=== PATIENT | female | born 1995 | race Caucasian/White ===

== ENCOUNTER 2018-03-10 18:39 | Emergency (ER) | payer BC ==
[2018-03-10] MEDS ORDERED: IBUPROFEN 200 MG TABLET PO ONE (19:16)
[2018-03-10] MEDS ORDERED: AMOXICILLIN/POT 875/125 1 EACH PO ONE (19:26)
--- NOTE | 2018-03-10 19:29 | ED Physician Documentation ---
Sore Throat/Dental Pain - HISTORIAN Historian: patient - HPI Stated Complaint: sore throat Chief Complaint: Sore Throat Additional Information: Patient presents to ED with a 2 day history of sore throat. Upon presentation she has fever 102.0. 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 Onset: hours (24) Associated Symptoms: fever, chills, sore throat - ROS CONST: no problems CVS/RESP: denies: chest pain GI/: denies: nausea, vomiting MS/SKIN/LYMPH: denies: muscle aches, leg swelling NEURO/PSYCH: none - PAST HX Past History: none Allergies/Adverse Reactions: Allergies Allergy/AdvReac Type Severity Reaction Status Date / Time cephalexin [From Keflex] Allergy Verified 03/10/18 19:31 Home Medications: Ambulatory Orders Medication Instructions Recorded Amoxicillin/Potassium Clav 1 each PO BID #20 tablet 03/10/18 [Augmentin 875-125 Tablet] - SOCIAL HX Smoking History: non-smoker Alcohol Use: none Drug Use: none - FAMILY HX Family History: No - VITAL SIGNS Vital Signs: Vital Signs Temp Pulse Resp BP Pulse Ox 100.3 F H 123 H 24 122/95 97 03/10/18 19:45 03/10/18 19:45 03/10/18 19:45 03/10/18 19:45 03/10/18 19:45 - REVIEWED ASSESSMENTS Nursing Assessment Reviewed: Yes Vitals Reviewed: Yes ED Results Lab/Radiology - Lab Results Lab Results: Lab Results 03/10/18 19:20 Group A Strep Screen Positive H (NEGATIVE) Rapid Strep - Positive - Orders Orders: ED Orders Category Date Time Status Rapid Strep [GRP A STREP SCREEN] Stat Lab 03/10/18 19:20 Completed Amoxicillin/Potassium Clav [Augmentin 875Mg/125Mg] Med 03/10/18 19:26 Discontinued 1 each PO NOW ONE Ibuprofen [Advil] Med 03/10/18 19:16 Discontinued 600 mg PO NOW ONE Sore throat Physical Exam - EXAM General Appearance: no acute distress, alert Head/Neck: no lymphadenopathy Eyes: PERRL Mouth/Throat: pharyngeal erythema, tonsillar exudate, tonsillar swelling Ear/Nose: nml inspection Respiratory: no resp. distress, breath sounds nml CVS: reg. rate & rhythm, heart sounds nml Abdomen: soft, normal bowel sounds Extremities: non-tender Skin: warm/dry Neuro/Psych: oriented x3, mood/affect nml Discharge Clincal Impression: Strep throat Prescriptions: Amoxicillin/Potassium Clav [Augmentin 875-125 Tablet] 1 each PO BID #20 tablet Referrals: Primary Doctor,No [Primary Care Provider] - 2 Days Additional Instructions: 1. Take antibiotics as directed 2. You will be contagious for the next 24 hours 3. Tylenol and/or Ibuprofen as need for pain/fever 4. Follow up with PCP within 1 week. 5. Return to the ER for new or worsening symptoms. Condition: Stable Disposition: 01 HOME, SELF-CARE Decision to Admit: NO Date of Decison to Admit: 03/10/18 Decision Time: 19:29
[2018-03-10 19:55] VITALS: BP 122/95
== END 2018-03-10 19:50 | disposition home or self-care (01) ==
LOC: ED 18:39
DX: J02.0 Streptococcal pharyngitis (principal); B95.0 Streptococcus, group A, as the cause of diseases classified elsewhere
CPT/HCPCS: 87880; 99282; 99283

== ENCOUNTER 2018-04-21 18:13 | Emergency (ER) | payer BC ==
[2018-04-21] MEDS ORDERED: AMOXICILLIN/POT 875/125 1 EACH PO ONE (18:40)
--- NOTE | 2018-04-21 18:44 | ED Physician Documentation ---
Sore Throat/Dental Pain - HISTORIAN Historian: patient - HPI Stated Complaint: sore throat Chief Complaint: Sore Throat Additional Information: Patient presents to ED with sore throat x 2 days. Patient had recent strep throat and finished a 10 day course of Augmentin 3 weeks ago. Onset: days ago (2) Associated Symptoms: fever Further Comments: no - ROS CONST: recent illness CVS/RESP: denies: shortness of breath GI/: denies: nausea, vomiting MS/SKIN/LYMPH: denies: rash NEURO/PSYCH: headache - PAST HX Past History: none Other History: none Allergies/Adverse Reactions: Allergies Allergy/AdvReac Type Severity Reaction Status Date / Time cephalexin [From Keflex] Allergy Verified 03/10/18 19:31 Home Medications: Ambulatory Orders Medication Instructions Recorded Amoxicillin/Potassium Clav 1 each PO BID #20 tablet 03/10/18 [Augmentin 875-125 Tablet] Amoxicillin/Potassium Clav 875 each PO BID 14 Days #28 tablet 04/21/18 [Augmentin 875Mg/125Mg] - SOCIAL HX Smoking History: non-smoker Alcohol Use: none Drug Use: none - FAMILY HX Family History: No - VITAL SIGNS Vital Signs: Vital Signs Temp Pulse Resp BP Pulse Ox 97.2 F L 101 H 16 137/80 99 04/21/18 18:15 04/21/18 18:15 04/21/18 18:15 04/21/18 18:15 04/21/18 18:15 - REVIEWED ASSESSMENTS Nursing Assessment Reviewed: Yes Vitals Reviewed: Yes ED Results Lab/Radiology - Orders Orders: ED Orders Category Date Time Status Rapid Strep [GRP A STREP SCREEN] Stat Lab 04/21/18 Ordered Amoxicillin/Potassium Clav [Augmentin 875Mg/125Mg] Med 04/21/18 18:40 Disco ntinued 1 each PO NOW ONE Sore throat Physical Exam - EXAM General Appearance: no acute distress, alert Head/Neck: head nml inspection Eyes: PERRL Mouth/Throat: pharyngeal erythema. No: tonsillar exudate Ear/Nose: nml inspection Respiratory: no resp. distress CVS: reg. rate & rhythm, heart sounds nml Abdomen: soft, normal bowel sounds Extremities: non-tender Skin: warm/dry Neuro/Psych: oriented x3, mood/affect nml Discharge Clincal Impression: Strep pharyngitis Prescriptions: Amoxicillin/Potassium Clav [Augmentin 875Mg/125Mg] 875 each PO BID 14 Days #28 tablet Referrals: Primary Doctor,No [Primary Care Provider] - 2 Days Additional Instructions: 1. Tylenol and/or ibuprofen as needed for pain/fever 2. Warm salt water gargles twice daily 3. Augmentin twice daily x 14 days 4. Follow up with PCP within 1 week. Referral to ENT may be beneficial 5. Return to ER for new or worsening symptoms Condition: Stable Disposition: 01 HOME, SELF-CARE Decision to Admit: NO Date of Decison to Admit: 04/21/18 Decision Time: 18:46
[2018-04-21 18:55] VITALS: BP 137/80
== END 2018-04-21 19:03 | disposition home or self-care (01) ==
LOC: ED 18:13
DX: J02.0 Streptococcal pharyngitis (principal); B95.0 Streptococcus, group A, as the cause of diseases classified elsewhere
CPT/HCPCS: 87880; 99282; 99283

== ENCOUNTER 2018-06-12 18:44 | Emergency (ER) | payer BC ==
[2018-06-12] MEDS ORDERED: CARBAMIDE PEROXIDE 6.5% OTIC SUSP 15 ML BOTTLE AU ONE (18:59)
--- NOTE | 2018-06-12 19:03 | ED Physician Documentation ---
Ear Complaints - HISTORIAN Historian: patient - HPI Timing: still present Location of Pain: R ear Severity: moderate Associated Symptoms: denies: fever, chills, headache - ROS CONST: no problems CVS/RESP: none GI/: denies: nausea, vomiting MS/SKIN/LYMPH: none NEURO/PSYCH: none - PAST HX Past History: none, other Allergies/Adverse Reactions: Allergies Allergy/AdvReac Type Severity Reaction Status Date / Time cephalexin [From Keflex] Allergy Hives Verified 06/12/18 19:02 - SOCIAL HX Smoking History: non-smoker Alcohol Use: none - FAMILY HX Family History: No - VITAL SIGNS Vital Signs: Vital Signs Temp Pulse Resp BP Pulse Ox 137/80 04/21/18 19:00 - REVIEWED ASSESSMENTS Nursing Assessment Reviewed: Yes Vitals Reviewed: Yes ED Results Lab/Radiology - Orders Orders: ED Orders Category Date Time Status Irrigate Ear 1T Care 06/12/18 19:00 Ordered Carbamide Peroxide 6.5% Otic [Debrox] Med 06/12/18 18:59 Once 5 drop AU NOW ONE Ear Complaint Physical Exam - EXAM General Appearance: no acute distress, alert Ear: 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 Debrox to both ears weekly to prevent wax build up. 2. Tylenol and/or Ibuprofen as needed for pain 3. Follow up with PCP within 1 week 4. Return to ER for new or worsening symptoms Condition: Stable Disposition: 01 HOME, SELF-CARE Decision to Admit: NO Date of Decison to Admit: 06/12/18 Decision Time: 19:49
[2018-06-12 20:00] VITALS: BP 139/95
== END 2018-06-12 19:54 | disposition home or self-care (01) ==
LOC: ED 18:44
DX: H61.21 Impacted cerumen, right ear (principal)
CPT/HCPCS: 99282; S1016